=== PATIENT | female | born 1980 | race Caucasian/White ===

== ENCOUNTER 2017-04-29 12:48 | Emergency (ER) | payer MEDICAID ==
[2017-04-29 12:59] VITALS: RESP 16
--- NOTE | 2017-04-29 15:29 | EDPHY ---
HPI/HX/ROS/PE/MDM Narrative: CHIEF COMPLAINT: N,V,D Abdominal pain HISTORY OF PRESENT ILLNESS: The patient is a 36-year-old female, diagnosed with diverticulitis via CT as well as UTI 3 days ago. She comes to the ED today with worsened nausea, vomiting, diarrhea, and continued right sided abdominal pain. She currently is taking Flagyl, Cipro, Moyers, and Phenergan. She states the Phenergan has not alleviated her nausea and vomiting. She continues to have right upper abdominal pain that radiates to her right flank. She reports no alleviating or aggravating factors. No fever, or diarrhea. No hematuria. Seen at [facility] 04/26/17. REVIEW OF SYSTEMS: Aside from elements discussed in the HPI, a comprehensive 10-point review of systems was reviewed and is negative. PAST MEDICAL HISTORY: Asthma, Hypertension PSH: Cholecystectomy, Appendectomy, Inguinal hernia repair, , Pulmonary embolectomy, Endometrial ablation SOCIAL HISTORY: Homeless. Nonsmoker. No alcohol use. Occasional marijuana use. VITAL SIGNS: Reviewed by me GENERAL: Well-developed, well-nourished, resting comfortably in no respiratory distress. HEENT: Atraumatic. Eyes: No icterus, no injection. Mouth: dry mucous membranes. No erythema or lesions. Neck: supple with no adenopathy. LUNGS: Clear to auscultation bilaterally, no wheezes, rhonchi or rales. CARDIAC: Regular rate and rhythm, no rubs, murmurs or gallops. ABDOMEN: Soft, RUQ tenderness, RLQ tenderness, Right mid-abdominal tenderness. No guarding or rebound. Nondistended, bowel sounds normal. BACK: No CVA tenderness. EXTREMITIES: No trauma. No edema. Range of motion is normal throughout. NEURO: Alert and oriented, grossly nonfocal. SKIN: Patches of eczema on back bilaterally and to right abdomen. Multiple old scars. PSYCHIATRIC: Normal mentation, no agitation. ED Course: I reviewed the patient's medical records from 04/26/[address] [facility] showed sigmoid diverticulitis. Plan for repeat CT abd/pel. Basic lab work ordered. IV was established, patient received IV Phenergan. CT today shows improved prior reported diverticulitis. 2mm stone in left kidney. Stool in the hepatic structure. I discussed findings with the patient. I will send patient home with Ativan for her ongoing nausea. She was instructed to take use magnesium citrate for constipation. MDM: After obtaining the patients history and performing an examination, differential diagnosis considered included but was not limited to gastritis, pancreatitis, kidney stones, urinary tract infection, diverticulitis, constipation, hyperemesis syndrome and other causes. - Data Points Imaging Results: CT of abdomen pelvis: Impression: 1. Possible very minimal inflammatory change surrounding a single diverticulum at the distal aspect of the descending colon. Otherwise, nothing acute in the large and small bowels. 2. Moderate stool. No distention. 3. 2-mm nonobstructing left renal stone. 4. Otherwise, negative noncontrasted evaluation of the abdomen and pelvis. Findings and recommendations discussed with Dr. Gertrude Navarrete, at 1700 hours on April 29, 2017. Reported by Dr Rsoe. Imaging: Discussed imaging studies w/ call center professional Radiologist Laboratory Results: Laboratory Results 04/29/17 16:00 04/29/17 16:00 Medications Given: Discontinued Medications Sodium Chloride (Ns) 1,000 mls @ 0 mls/hr IV EDNOW ONE; Wide Open PRN Reason: Protocol Stop: 04/29/17 15:34 Last Admin: 04/29/17 16:08 Dose: 1,000 mls Promethazine HCl (Phenergan) 12.5 mg IVP EDNOW ONE Stop: 04/29/17 15:34 Last Admin: 04/29/17 16:09 Dose: 12.5 mg General Time Seen by Provider: 04/29/17 15:02 Initial Vital Signs: Initial Vital Signs Temperature (C) 37 C 04/29/17 12:55 Heart Rate 86 04/29/17 12:55 Respiratory Rate 16 04/29/17 12:55 Blood Pressure 130/99 H 04/29/17 12:55 O2 Sat (%) 96 04/29/17 12:55 O2 Delivery Mode Room Air Allergies/Adverse Reactions: metoclopramide [From Reglan] Allergy (Verified 04/29/17 13:01) CT CONTRAST Allergy (Uncoded 04/29/17 13:01) PROPANOLOL Allergy (Uncoded 04/29/17 13:01) Home Medications: Medication Instructions Recorded Advair 04/29/17 Cardizem 04/29/17 Cipro 04/29/17 Flagyl 04/29/17 LORazepam [Ativan (*)] 0.5 - 1 mg PO BID PRN #6 tab 04/29/17 Moyers 04/29/17 Phenergan 04/29/17 Proair Hfa 04/29/17 Singulair 04/29/17 Departure - Departure Disposition: Home, Routine, Self-Care Clinical Impression: Abdominal pain Qualifiers: Abdominal location: right upper quadrant Qualified Code(s): R10.11 - Right upper quadrant pain Constipation Qualifiers: Constipation type: unspecified constipation type Qualified Code(s): K59.00 - Constipation, unspecified Condition: Good Instructions: Constipation (ED), Abdominal Pain (ED) Additional Instructions: Drink plenty of fluids. I recommend taking magnesium citrate to alleviate constipation. Continue Phenergan as needed for nausea. For severe nausea, take Ativan as prescribed. Continue taking your antibiotics as directed for diverticulitis. Followup with your primary care physician if symptoms persist. Referrals: [facility],. [Clinic] - As per Instructions Prescriptions: LORazepam [Ativan (*)] 0.5 - 1 mg PO BID PRN #6 tab PRN Reason: Nausea Report Scribed for: Gertrude Navarrete Report Scribed by: Loni Mcmahan Date of Report: 04/29/17 Time of Report: 15:38 Physician Review and Approval Statement: Portions of this note were transcribed by a medical equipment repair technician. I personally performed a history, physical exam, medical decision making, and confirmed accuracy of information the transcribed note.
[2017-04-29] MEDS ORDERED: NS 1,000 ML IV ONE (15:33)
[2017-04-29] MEDS ORDERED: PROMETHAZINE HCL 25 MG/ML INJ IVP ONE (15:33)
[2017-04-29 15:56] LABS: COLOR YELLOW; LEUKOCYTE ESTERASE,URINE TRACE (NEGATIVE); NITRITE,URINE NEGATIVE (NEGATIVE)
[2017-04-29 15:57] LABS: MUCUS TRACE /lpf (NONE-1+)
[2017-04-29 16:08] LABS: % IMMATURE GRANULYOCYTES 0.4 % (0.0-1.1); ABSOLUTE IMMATURE GRANULOCYTES 0.03 10^3/uL (0.00-0.10); ADD DIFF? NO; ADD MORPH? NO; ADD SCAN? NO; ATYPICAL LYMPHOCYTE FLAG 0 (0-99); FRAGMENT RBC FLAG 0 (0-99); HEMATOCRIT 45.1 % (38.0-47.0); HEMOGLOBIN 15.5 g/dL (12.6-16.3); LEFT SHIFT FLG 0 (0-99); LIPEMIA HEMOLYSIS FLAG 90 (0-99); MEAN CELL HEMOGLOBIN 30.4 pg (27.9-34.1); MEAN CELL HEMOGLOBIN CONCENTR. 34.4 g/dL (32.4-36.7); MEAN CELL VOLUME 88.4 fL (81.5-99.8); MEAN PLATELET VOLUME 9.2 fL (8.7-11.7); PLATELET CLUMPS FLAG 0 (0-99); PLATELET COUNT 285 10^3/uL (150-400); RED CELL DISTRIBUTION WIDTH 12.5 % (11.5-15.2)
[2017-04-29 16:24] LABS: ALANINE AMINOTRANSFERASE 61 IU/L (9-52); ALBUMIN 4.1 g/dL (3.5-5.0); ALKALINE PHOSPHATASE 68 IU/L (38-126); ANION GAP 13 mEq/L (8-16); ASPARTATE AMINOTRANSFERASE 38 IU/L (14-46); BILIRUBIN,TOTAL 0.5 mg/dL (0.1-1.4); BILIRUBIN-CONJUGATED 0.3 mg/dL (0.0-0.5); BILIRUBIN-UNCONJUGATED 0.2 mg/dL (0.0-1.1); CALCIUM 9.6 mg/dL (8.5-10.4); CARBON DIOXIDE 20 mEq/l (22-31); CHLORIDE 107 mEq/L (97-110); CREATININE 0.8 mg/dL (0.6-1.0); GLOMERULAR FILTRATION RATE > 60; GLUCOSE 81 mg/dL (70-100); POTASSIUM 4.3 mEq/L (3.5-5.2); SODIUM 140 mEq/L (134-144); TOTAL PROTEIN 6.5 g/dL (6.3-8.2)
[2017-04-29 18:15] VITALS: BP 128/74; PULSE 65; TEMP 97.7; O2SAT 98
== END 2017-04-29 18:14 | disposition home or self-care (01) ==
DX: K59.00 Constipation, unspecified (principal); E86.9 Volume depletion, unspecified; J45.909 Unspecified asthma, uncomplicated; I10 Essential (primary) hypertension
CPT/HCPCS: 96374; J2550